=== PATIENT | female | born 1990 | race American Indian/Alaskan Native ===

== ENCOUNTER 2017-10-12 19:49 | Emergency (ER) | payer MEDICAID ==
[2017-10-12 21:39] LABS: Bacteria,Urine 1+ /HPF (Negative); Bilirubin,Urine NEG (Negative); Blood,Urine NEG (Negative); Color,Urine Yellow (Yellow); Mucus,Urine FEW /HPF; Protein,Urine <15 mg/dL mg/dL (Negative); Urobilinogen,Urine < 2.0 mg/dL (<2.0)
--- NOTE | 2017-10-12 21:58 | Emergency Department Report ---
ED HPI - General Chief complaint: Abdominal Pain Stated complaint: ABD PAIN Time Seen by Provider: 10/12/17 21:54 Source: patient Mode of arrival: Ambulatory Limitations: No Limitations - History of Present Illness Initial comments: This is a 27-year-old female nontoxic, well nourished in appearance, no acute signs of distress presents to the ED with c/o of pelvic pain x1 day. Patient denies any vaginal bleeding or abdominal pain. Patient denies any vaginal discharge or foul odor. PAtient denies any vaginal bleeding. Patient denies any nausea, vomiting, chest pain, shortness of breathe, fever, chills, headache, stiff neck, numbness, tingling. Patient denies any urinary symptoms. Patient stated she had a [facility] consult last week that confirmed but never had an ultrasound done. Patient denies any allergies or PMH. MD Complaint: abdominal pain -: days(s) (1) Location: pelvis Radiation: none Severity: mild Severity scale (0 -10): 3 Quality: cramping Consistency: intermittent Improves with: none Worsens with: none Associated symptoms: denies other symptoms. denies: nausea/vomiting, vaginal bleeding, vaginal discharge, abdominal pain, dysuria, headache, vision changes, malaise, dysparuenia, rash, seizure, shortness of breath, syncope, weakness Vaginal bleeding: none :: Yes Pre-jennifre care: followed by OB - Related Data : 3 Para: 6 Ab: 2 Previous Rx's Medication Instructions Recorded Last Taken Type Ibuprofen [Motrin] 600 mg PO Q8H PRN #30 tablet 10/13/17 Unknown Rx Allergies Allergy/AdvReac Type Severity Reaction Status Date / Time No Known Allergies Allergy Unverified 10/12/17 21:14 ED Review of Systems ROS: Stated complaint: ABD PAIN Other details as noted in HPI Constitutional: denies: chills, fever Eyes: denies: eye pain, eye discharge, vision change ENT: denies: ear pain, throat pain Respiratory: denies: cough, shortness of breath, wheezing Cardiovascular: denies: chest pain, palpitations Endocrine: no symptoms reported Gastrointestinal: abdominal pain (pelvic area). 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 - Surgical History Hx Cholecystectomy: Yes (2011) - Social History Smoking Status: Never Smoker Substance Use Type: None - Medications Home Medications: Home Medications Medication Instructions Recorded Confirmed Last Taken Type Ibuprofen [Motrin] 600 mg PO Q8H PRN #30 tablet 10/13/17 Unknown Rx ED Physical Exam - General Limitations: No Limitations General appearance: alert, in no apparent distress - Head Head exam: Present: atraumatic, normocephalic - Eye Eye exam: Present: normal appearance Pupils: Present: normal accommodation - ENT ENT exam: Present: normal exam, mucous membranes moist - Neck Neck exam: Present: normal inspection, full ROM. Absent: tenderness, meningismus, lymphadenopathy - Respiratory Respiratory exam: Present: normal lung sounds bilaterally. Absent: respiratory distress, wheezes, rales, rhonchi, stridor, chest wall tenderness, accessory muscle use, decreased breath sounds, prolonged expiratory - Cardiovascular Cardiovascular Exam: Present: regular rate, normal rhythm, normal heart sounds. Absent: bradycardia, tachycardia, irregular rhythm, systolic murmur, diastolic murmur, rubs, gallop - GI/Abdominal GI/Abdominal exam: Present: soft, tenderness (pelvic area), normal bowel sounds. Absent: distended, guarding, rebound, rigid, diminished bowel sounds - Expanded GI/Abdominal Exam Expanded GI/Abdominal exam: Absent: psoas sign, obturator sign, heel tap sign, Mon's sign, Rovsing's sign, tenderness at Mcburney's Point, ascites - Rectal Rectal exam: Present: deferred - Extremities Exam Extremities exam: Present: normal inspection, full ROM, normal capillary refill. Absent: tenderness - Back Exam Back exam: Present: normal inspection, full ROM. Absent: tenderness, CVA tenderness (R), CVA tenderness (L), muscle spasm, paraspinal tenderness, vertebral tenderness, rash noted - Neurological Exam Neurological exam: Present: alert, oriented X3, normal gait - Psychiatric Psychiatric exam: Present: normal affect, normal mood - Skin Skin exam: Present: warm, dry, intact, normal color. Absent: rash ED Course Vital Signs 10/12/17 10/12/17 21:04 23:16 Temperature 98.9 F Pulse Rate 96 H 73 Respiratory 18 18 Rate Blood Pressure 106/62 Blood Pressure 103/64 [Right] O2 Sat by Pulse 100 99 Oximetry - Reevaluation(s) Reevaluation #1: 10/12/17 23:41 Patient is speaking in full sentences with no signs of distress noted. - Consultations Consultation #1: 10/13/17 00:49 Patient has been consulted with Dr. Dooley ([facility]) about patient history, physical exam, and labs and agrees to ED plan of care and discharge plan of care with follow-up. ED Medical Decision Making - Lab Data Result diagrams: 10/12/17 21:40 10/12/17 21:45 - Medical Decision Making This is a 27-year-old female presents with demise. Patient is stable and was examined by me. Normal abdominal exam. US OB obtained and dictated by the radiologist. Dr. Dooley from [facility] consulted. Ua obtained. Quantative serum test obtained. Patient notified of the US report with no questions noted by the patient. Patient was instructed f/u with [facility] in 2 days to follow up with a [facility] or to emergency room for a reevaluation of serum quantative test with possible ultrasound. Dr. Dooley stated to perform a Rhogam type/screen. Rhogam assessment ordered but patient refused. Patient was instructed and educated on risk factors of RH negative but patient still refused as she stated she will go to [facility] tomorrow. Patient signed AMA. Labs within normal limits. Patient was referred to Follow-up with a [facility] in 2 days or if symptoms worsen and continue return to emergency room as soon as possible. At time of AMA, the patient does not seem toxic or ill in appearance. No acute signs of distress noted. Patient agrees to treatment plan of care. No further questions noted by the patient. Critical care attestation.: If time is entered above; I have spent that time in minutes in the direct care of this critically ill patient, excluding procedure time. ED Disposition Clinical Impression: demise Disposition: DC-07 LEFT AGAINST MED ADVICE Is pt being admited?: No Does the pt Need Aspirin: No Condition: Stable Instructions: Intrauterine Demise (ED) Additional Instructions: Follow-up with a [facility] doctor in 24 hours or if symptoms worsen and continue return to emergency room as soon as possible. As instructed and directed to you in the ED, it is very important to have a RH antibodies evaluation and possible treatment with RhoGAM so you must follow-up with a [facility] as soon as possible. Prescriptions: Ibuprofen [Motrin] 600 mg PO Q8H PRN #30 tablet PRN Reason: Pain Referrals: PRIMARY CARE, [Primary Care Provider] - 3-5 Days FLORENCIO DOOLEY MD [Staff Physician] - 3-5 Days [facility] [Provider Group] - 3-5 Days [facility] [Outside] - 3-5 Days [facility] [Outside] - 3-5 Days Forms: Work/School Release Form(ED), AMA Form
[2017-10-12 22:05] LABS: Basophils # (Auto) 0.1 K/mm3 (0.0-0.1); Basophils % (Auto) 0.5 % (0.0-1.8); Eosinophils # (Auto) 0.2 K/mm3 (0.0-0.4); Eosinophils % (Auto) 1.8 % (0.0-4.3); Hematocrit 35.5 % (30.3-42.9); Hemoglobin 11.9 gm/dl (10.1-14.3); Lymphocytes # (Auto) 4.2 K/mm3 (1.2-5.4); Lymphocytes % (Auto) 36.6 % (13.4-35.0); Mean Corpuscular HGB Conc 34 % (30-34); Mean Corpuscular Hemoglobin 30 pg (28-32); Mean Corpuscular Volume 89 fl (79-97); Monocytes # (Auto) 0.9 K/mm3 (0.0-0.8); Monocytes % (Auto) 7.7 % (0.0-7.3); Platelet Count 349 K/mm3 (140-440); Red Cell Distribution Width 14.1 % (13.2-15.2)
[2017-10-12 22:22] LABS: Alanine Aminotransferase 9 units/L (7-56); Albumin 4.4 g/dL (3.9-5); BUN/Creatinine Ratio 10; Blood Urea Nitrogen 3 mg/dL (7-17); Calcium 9.5 mg/dL (8.4-10.2); Hemolysis Index 2
[2017-10-12 23:17] VITALS: BP 103/64
--- NOTE | 2017-10-12 23:47 | Ultrasound Report ---
FINAL REPORT PROCEDURE: US OB TRANSVAGINAL and transabdominal TECHNIQUE: Real-time transabdominal and transvaginal sonography of the uterus, placenta, amniotic fluid, adnexa, and fetus was performed with image documentation. Measurements were obtained to determine age/size. M-mode Doppler was used to document heartbeat. CPT 74104 and 74807 HISTORY: pelvic pain COMPARISON: No prior studies are available for comparison. FINDINGS: ADDITIONAL GESTATION: None. CRL: 19 mm, which corresponds to a gestational age of: 8 weeks, 4 days. Yolk Sac: Normal. Embryonic Cardiac Activity: No evidence of embryonic cardiac activity Gestational Sac: Normal. Amniotic fluid: Normal. Cervix: Normal. Right Ovary: Normal. Left Ovary: Normal. Uterus and adnexa: Normal. IMPRESSION: /embryonic demise of an approximate 8 week fetus. No cardiac activity is identified on this study.
--- NOTE | 2017-10-12 23:48 | Ultrasound Report ---
FINAL REPORT PROCEDURE: US OB TRANSVAGINAL and transabdominal TECHNIQUE: Real-time transabdominal and transvaginal sonography of the uterus, placenta, amniotic fluid, adnexa, and fetus was performed with image documentation. Measurements were obtained to determine age/size. M-mode Doppler was used to document heartbeat. CPT 27099 and 95363 HISTORY: pelvic pain COMPARISON: No prior studies are available for comparison. FINDINGS: ADDITIONAL GESTATION: None. CRL: 19 mm, which corresponds to a gestational age of: 8 weeks, 4 days. Yolk Sac: Normal. Embryonic Cardiac Activity: No evidence of embryonic cardiac activity Gestational Sac: Normal. Amniotic fluid: Normal. Cervix: Normal. Right Ovary: Normal. Left Ovary: Normal. Uterus and adnexa: Normal. IMPRESSION: /embryonic demise of an approximate 8 week fetus. No cardiac activity is identified on this study.
== END 2017-10-13 01:21 | disposition left against medical advice (07) ==
LOC: ED 19:49
DX: O26.891 Other specified pregnancy related conditions, first trimester (principal); R10.2 Pelvic and perineal pain; Z3A.01 Less than 8 weeks gestation of pregnancy
CPT/HCPCS: 36415; 76801; 76817; 80053; 81001; 84702; 85025

== ENCOUNTER 2017-10-18 05:55 | Day surgery (SDC) | payer MEDICAID ==
[2017-10-18] MEDS ORDERED: LACTATED RINGERS 1,000 ML IV SCH (06:00)
[2017-10-18] MEDS ORDERED: VERSED IV NR (06:00)
--- NOTE | 2017-10-18 06:43 | Short Stay Summary ---
Short Stay Documentation Date of service: 10/18/17 Narrative H&P: Pt is a 27yo BF LMP 08/05/17 presents for surgical treatment of an Intrauterine demise @ 8 weeks. Pelvic u/s 10/12/17 showed IUFD @ 8 weeks. She now presents for a D&C. - History Principal diagnosis: IUFD H&P: obtained from office Past Medical History: No medical history Past Surgical History: cholecystectomy, , Other (lung surgery) Social history: no significant social history, single - Allergies and Medications Current Medications: Allergies No Known Allergies Allergy (Verified 10/17/17 11:44) Home Medications Medication Instructions Recorded Confirmed Last Taken Type Pnv,Calcium 72/Iron/Folic Acid 1 tab PO DAILY 10/17/17 10/17/17 Unknown History [Pnv Plus Multivit Tab] Active Medications Lactated Ringer's (Lactated Ringers) 1,000 mls @ 100 mls/hr IV DIRECT CARMELINA Cefazolin Sodium (Ancef/Sterile Water 2 Gm/20 Ml) 2 gm in 20 mls @ 80 mls/hr IV PREOP NR; Protocol Midazolam HCl (Versed) 2 mg IV PREOP NR Stop: 10/18/17 23:59 - Physical exam General appearance: mild distress Integumentary: no rash HEENT: Atraumatic Lungs: Clear to auscultation Breasts: deferred Heart: Regular rate Gastrointestinal: normal Female Genitourinary: deferred Rectal Exam: deferred Extremities: no ischemia, No edema Neurological: Normal gait, Normal speech - Brief post op/procedure progress note Date of procedure: 10/18/17 Pre-op diagnosis: 1. Intrauterine demise at 8 weeks 2. Missed Post-op diagnosis: same Procedure: Dilatation and curettage Anesthesia: MAC Findings: An 8-10 week size uterus with moderate amounts of products of conception Surgeon: REMBERTO PATTERSON Estimated blood loss: 50-100ml Pathology: list (POC) Specimen disposition: to lab Condition: stable - Hospital course Hospital course: Unremarkable - Disposition Condition at discharge: Good Disposition: DC-01 TO HOME OR SELFCARE - Discharge Diagnoses (1) Missed Status: Resolved (2) demise Status: Resolved Short Stay Discharge Plan Activity: no restrictions Diet: regular Follow up with: MARIANO UGERRERO MD [Primary Care Provider] - 7 Days REMBERTO PATTERSON MD [Staff Physician] - 14 Days Prescriptions: Doxycycline [Vibramycin CAP] 100 mg PO Q12HR #14 capsule Ibuprofen [Motrin] 800 mg PO Q8HR PRN #30 tablet PRN Reason: Pain, Moderate (4-6) Methylergonovine [Methergine] 0.2 mg PO Q8HR #6 tablet
--- NOTE | 2017-10-18 06:58 | Anesthesia Day of Surgery ---
Anesthesia Day of Surgery - Day of Surgery Patient Examined: Yes Patient H&P Reviewed: Yes Patient is NPO: Yes
[2017-10-18] MEDS ORDERED: TORADOL IV PRN (06:59)
[2017-10-18] MEDS ORDERED: ZOFRAN IV PRN (06:59)
[2017-10-18] MEDS ORDERED: DILAUDID IV PRN (06:59)
--- NOTE | 2017-10-18 06:59 | Anesthesia Consultation ---
Anesthesia Consult and Med Hx Date of service: 10/18/17 - Airway Anesthetic Teeth Evaluation: Poor, Chipped ROM Head & Neck: Adequate Mental/Hyoid Distance: Adequate Mallampati Class: Class II Intubation Access Assessment: Probably Good - Pulmonary Exam CTA: Yes - Cardiac Exam Cardiac Exam: RRR - Pre-Operative Health Status ASA Pre-Surgery Classification: ASA3 Proposed Anesthetic Plan: General (hx of CVA, no deficits, AVM in Lungs, Demise at 8 wks, GA with LMA ok) - Pulmonary Hx Smoking: Yes (STOPPED X 6 YRS) Hx Sleep Apnea: No (NUBIA PRE SCREEN NEGATIVE) - Cardiovascular System Hx Hypertension: Yes (TOOK SELF OFF MEDS X 1 YR AGO) - Other Systems Hx Cancer: No
[2017-10-18] MEDS ORDERED: ANCEF/STERILE WATER 2 GM/20 ML 2 GM/20 ML SYRINGE IV NR (07:00)
[2017-10-18 07:28] LABS: Hematocrit 32.9 % (30.3-42.9); Hemoglobin 11.1 gm/dl (10.1-14.3)
--- NOTE | 2017-10-18 08:06 | Operative Report ---
Operative Report Operative Report: PREOPERATIVE DIAGNOSIS: 1. Intrauterine demise at 8 weeks 2. Missed POSTOPERATIVE DIAGNOSIS: Same OPERATIVE PROCEDURE: Dilatation and curettage. SURGEON: Villa Angel MD ANESTHESIA: Gen. mask ANESTHESIOLOGIST: Dr. Jay ESTIMATED BLOOD LOSS: 50 mL's FINDINGS: An 8-10 week size uterus with moderate amounts of products of conception COMPLICATIONS: None COUNTS: Correct x3. PROCEDURE: After the patient was correctly identified as the patient, and after general anesthesia was administered, the patient was prepped and draped in the usual sterile fashion and placed in dorsal lithotomy position. First, the bladder was emptied using a straight catheter. Next, a speculum was placed in the vaginal vault and the anterior lip of the cervix was grasped using a single-tooth tenaculum. The uterus was sounded to 9 cm. The cervical os was sequentially dilated, and a 9 mm vaccurette was used to suction blood and products of conception from the uterine cavity. After all the products of conception were removed, the procedure was considered complete. All instruments were removed from the vagina. The patient tolerated the procedure well and was transferred to the recovery room in stable condition.
[2017-10-18] MEDS ORDERED: NACL 0.9% IR ONE (08:08)
[2017-10-18 17:07] VITALS: BP 117/58
== END 2017-10-18 10:10 | disposition home or self-care (01) ==
LOC: OR 05:55
PROVIDERS: ATTEND Obstetrics & Gynecology
DX: O02.1 Missed abortion (principal); I10 Essential (primary) hypertension; Z3A.08 8 weeks gestation of pregnancy; Z90.49 Acquired absence of other specified parts of digestive tract; Z98.890 Other specified postprocedural states; Z87.891 Personal history of nicotine dependence
CPT/HCPCS: 36415; 59820; 85014; 85018; 86850; 86900; 86901; 88305; J2790